=== PATIENT | male | born 1960 | race Caucasian/White ===

== ENCOUNTER 2018-01-31 12:16 | Inpatient (IN) | payer OTHER ==
[~2018-01-31] VITALS: Ht 170.2 cm; Wt 63.5 kg
[~2018-01-31 12:16] MED LIST: AZITHROMYCIN500 M3 PO; CHERATUSSIN AC118 M1 PO; LISINOPRIL20 M1 PO; MEDROL4 M2 PO; METHADONE H5 MG/5 ML PO; METHADONE HCL10 M1 PO; NICOTINE PATCH1 EAC2 TOP; PREDNISONE10 M2 PO; PROAIR HFA8.5 GM INH; SPIRIVA 18 MCG18 MCG INH; SPIRIVA18 MCG INH; TESSALON PERLE100 M1 PO; ZITHROMAX500 M2 PO
--- NOTE | 2018-01-31 12:35 | ED DYSPNEA/ASTHMA COMPLAINT ---
History of Present Illness General Chief Complaint: Dyspnea (COPD, CHF, Other) Stated Complaint: SOB X 2 DAYS Source: patient, old records Exam Limitations: no limitations Vital Signs & Intake/Output Vital Signs & Intake/Output Vital Signs Date Time Temp Pulse Resp B/P B/P Pulse O2 O2 Flow FiO2 Mean Ox Delivery Rate 01/31 1443 98.2 92 20 137/97 93 Nasal 4.0L Cannula 01/31 1250 93 Nasal 4.0L Cannula 01/31 1235 90 Nasal 4.0L Cannula 01/31 1219 99.0 120 20 142/97 82 Room Air Allergies Coded Allergies: diphenhydramine (From BENADRYL) (Intermediate, JITTERY 08/06/17) Antihistamines - Piperazine (UNKNOWN 08/06/17) Reconcile Medications Methadone HCl 5 MG/5 ML SOLUTION 80 MG PO DAILY MAINTENCE (Reported) Triage Note: PT TO ED C/O SOB SINCE TUESDAY. STATES HE IS UNABLE TO TAKE A DEEP BREATH. RA SATS 82%. PT APPEARS PALE AND DIAPHORETIC. C/O PRODUCTIVE COUGH. TAKEN TO ROOM 9 VIA W/C, PLACED ON O2. Triage Nurses Notes Reviewed? yes HPI: Patient presents with increasing shortness of breath and a nonproductive cough. He he has had chills and anorexia but denies any fevers. Patient does use oxygen occasionally at home and states that he has been having to use it more. Patient denies any chest pain or chest tightness. Similar symptoms in the past when his COPD and has acted up. Past History Travel History Traveled to [place] past 21 day No Medical History Any Pertinent Medical History? 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 No Review of Systems Review of Systems Constitutional: Reports: see HPI, chills. EENTM: Reports: no symptoms. Respiratory: Reports: see HPI, cough, short of breath. Cardiovascular: Reports: no symptoms. GI: Reports: no symptoms. Genitourinary: Reports: no symptoms. Musculoskeletal: Reports: no symptoms. Skin: Reports: no symptoms. Neurological/Psychological: Reports: no symptoms. Hematologic/Endocrine: Reports: no symptoms. Immunologic/Allergic: Reports: no symptoms. All Other Systems: Reviewed and Negative Physical Exam Physical Exam General Appearance: well developed/nourished, alert, awake, anxious, moderate distress Head: atraumatic, normal appearance Eyes: Bilateral: PERRL, EOMI. Ears, Nose, Throat: normal pharynx, normal ENT inspection, hearing grossly normal Neck: normal inspection, supple, full range of motion Respiratory: decreased breath sounds, rhonchi, wheezing Cardiovascular: regular rate/rhythm, normal peripheral pulses Gastrointestinal: normal bowel sounds, soft, non-tender, no organomegaly Extremities: normal inspection, normal capillary refill, normal range of motion, no edema Neurologic/Psych: no motor/sensory deficits, awake, alert, oriented x 3 Skin: intact, normal color, warm/dry Lymphatic: no anterior cervical trevon Core Measures ACS in differential dx? No CVA/TIA Diagnosis No Sepsis Present: No Sepsis Focused Exam Completed? No Progress Differential Diagnosis: altitude sickness, COPD, pulmonary embolism, pneumonia, pneumothorax Plan of Care: Orders Procedure Date/time Status Heart Healthy Diet 01/31 D Active Patient Data 01/31 1456 Active ED Holding Orders 01/31 1454 Active Admit to inpatient 01/31 1454 Active Vital Signs 01/31 1454 Active Code Status 01/31 1454 Active Intake & Output 01/31 1304 Active AEROSOL (GEN) 01/31 1255 Complete Telemetry/Vehicle Upholsterer 01/31 1237 Active TROPONIN LEVEL 01/31 1237 Complete COMPREHENSIVE METABOLIC PANEL 01/31 1237 Complete CBC WITHOUT DIFFERENTIAL 01/31 1237 Complete EKG 01/31 1237 Active Laboratory Tests 01/31/18 1300: Anion Gap 6, Estimated GFR > 60, BUN/Creatinine Ratio 42.0 H, Glucose 123 H, Calcium 8.3 L, Total Bilirubin 0.5, AST 72 H, ALT 50, Alkaline Phosphatase 114 , Troponin I < 0.01, Total Protein 5.4 L, Albumin 2.7 L, Globulin 2.7, Albumin /Globulin Ratio 1.0 L, CBC w Diff NO MAN DIFF REQ, RBC 4.12 L, MCV 97.9 H, MCH 32.9 H, MCHC 33.6, RDW 15.0 H, MPV 7.9, Gran % 84.3 H, Lymphocytes % 6.7 L, Monocytes % 8.4, Eosinophils % 0.3, Basophils % 0.3, Absolute Granulocytes 12.7 H, Absolute Lymphocytes 1.0 L, Absolute Monocytes 1.3 H, Absolute Eosinophils 0.1, Absolute Basophils 0 Diagnostic Imaging: Viewed by Me: Radiology Read. Discussed w/RAD: Radiology Read. CXR Impression: PATIENT: ROBERT BACK PRESENT AGE: 57 PATIENT ACCOUNT NO: [id number] : 62 LOCATION: [facility] ORDERING PHYSICIAN: Marcelo Powell MD SERVICE DATE: 01/31/18 EXAM TYPE: RAD - XRY- PORTABLE CHEST XRAY EXAMINATION: CHEST 1 VIEW CLINICAL INFORMATION: Shortness of breath. COMPARISON: 11/21/2017. TECHNIQUE: An AP view of the chest is provided. FINDINGS: The cardiac silhouette is not enlarged. The mediastinal and hilar contours are unremarkable. There are neither pleural effusions nor pneumothoraces. There is multifocal opacification, most prominently within the lateral inferior right upper lobe there is also streaky lateral right lung base opacification and faint airspace disease at the left lung base. The lungs are hyperinflated. The osseous structures are unremarkable. IMPRESSION: Multifocal airspace disease. This could correspond to pneumonia in the appropriate clinical setting, but is nonspecific. Recommendation is for a followup chest series to be obtained following treatment and/or resolution of symptoms to assure resolution of this appearance. DICTATED BY: Darinel Flores MD DATE/TIME DICTATED:01/31/181406 LEAN SENSEI:BLANCA DATE/TIME TRANSCRIBED:01/31/181406 CONFIDENTIAL, DO NOT COPY WITHOUT APPROPRIATE AUTHORIZATION. <Electronically signed in Other Vendor System> SIGNED BY: Darinel Flores MD 01/31/18 1413 Initial ED EKG: NSR, nonspecific ST T wave chg Prior EKG: unchanged Departure Departure Disposition: STILL A PATIENT Condition: Stable Clinical Impression Primary Impression: Pneumonia Referrals: Bessie GALE,Imani Mcclain (PCP/Family) Departure Forms: Customer Survey General Discharge Information Admission Note Spoke With: Mason Dia MD Documentation of Exam: Documentation of any treatments & extenuating circumstances including Concerns Regarding Discharge (functional status, medication knowledge or non-compliance, living conditions, etc.) that warrant an admission rather than observation: [IV antibiotics, IV steroids, nebulizers, pulmonary consultation, respiratory treatment.] Critical Care Note Critical Care Note Critical Care Time: non-applicable
[2018-01-31] MEDS ORDERED: METHADONE H5 MG/5 M2 PO (12:41)
[2018-01-31 13:12] LABS: ABSOLUTE BASOPHIL COUNT 0 /CUMM (0.0-0.2); ABSOLUTE EOSINOPHIL COUNT 0.1 /CUMM (0.0-0.7); ABSOLUTE GRANULOCYTE CT 12.7 /CUMM (1.4-6.5); ABSOLUTE MONOCYTE COUNT 1.3 /CUMM (0.10-0.60); BASOPHIL % 0.3 % (0.0-2.0); EOSINOPHIL % 0.3 % (0-5); HEMATOCRIT 40.3 % (42-52); MEAN CORPUSCULAR HGB 32.9 PG (27.0-31.0); MEAN CORPUSCULAR HGB CONC 33.6 G/DL (33.0-37.0); MEAN CORPUSCULAR VOLUME 97.9 FL (80.0-94.0); MEAN PLATELET VOLUME 7.9 FL (7.4-10.4); RED BLOOD CELL CT 4.12 /CUMM (4.70-6.10); WHITE BLOOD CELL COUNT 15.1 /CUMM (4.8-10.8)
[2018-01-31 13:29] LABS: GRANULOCYTE % 84.3 % (42.2-75.2); PLATELET COUNT 368 /CUMM (130-400)
--- NOTE | 2018-01-31 14:13 | RADIOLOGY REPORT ---
EXAMINATION: CHEST 1 VIEW CLINICAL INFORMATION: Shortness of breath. COMPARISON: 11/21/2017. TECHNIQUE: An AP view of the chest is provided. FINDINGS: The cardiac silhouette is not enlarged. The mediastinal and hilar contours are unremarkable. There are neither pleural effusions nor pneumothoraces. There is multifocal opacification, most prominently within the lateral inferior right upper lobe there is also streaky lateral right lung base opacification and faint airspace disease at the left lung base. The lungs are hyperinflated. The osseous structures are unremarkable. IMPRESSION: Multifocal airspace disease. This could correspond to pneumonia in the appropriate clinical setting, but is nonspecific. Recommendation is for a followup chest series to be obtained following treatment and/or resolution of symptoms to assure resolution of this appearance.
--- NOTE | 2018-01-31 14:59 | History & Physical ---
Jaime GALE,[facility] 01/31/18 1459: General Information and HPI MD Statement: I have seen and personally examined ROBERT BACK and documented this H&P. The patient is a 57 year old M who presented with a patient stated chief complaint of [shortness of breath]. Source of Information: patient Exam Limitations: no limitations History of Present Illness: The patient is 57-year-old gentleman with past medical history of COPD on home oxygen hypertension on lisinopril, 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 The patient presented to [facility] ED on 01/31 with complain of shortness of breath ongoing for past 2 days. Patient reports using home oxygen intermittently at baseline. Since past 2 days he has been using oxygen constantly. He also reports productive cough with brown to green color of sputum. He did not use any nebulization at home. He denies any fevers or any chills. He reports sharp pain underneath his ribs exacerbated by deep inspiration. He denies any sick contacts or any recent travel. He was treated for COPD exacerbation about 8 months ago. He has followed up with Dr. Santacruz once after that. He reports that he quit smoking one month ago, he used to smoke 1 and half a pack a day. Patient initially said that he has stopped consuming alcohol for past 6 months. However later said that he drinks 3-4 beers and 2-3 shots every night. He reports being on methadone. Review of system patient reported increased pressure and difficulty starting urination. 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 Home Who Do You Live With? child Services at Home: None Primary Language: Cypriot Smoking Status: Former Smoker ETOH Use: heavy use Illicit Drug Use: denies illicit drug use Functional Ability ADLs Independent: dressing, eating, toileting, bathing. Ambulation: independent IADLs Independent: shopping, housework, finances, food prep, telephone, transportation , medication admin. Review of Systems Review of Systems Constitutional: Reports: see HPI. Denies: chills, fever. EENTM: Reports: no symptoms. Cardiovascular: Denies: chest pain. Respiratory: Reports: cough, short of breath. GI: Reports: no symptoms. Genitourinary: Reports: see HPI. Exam & Diagnostic Data Last 24 Hrs of Vital Signs/I&O Vital Signs Date Time Temp Pulse Resp B/P B/P Pulse O2 O2 Flow FiO2 Mean Ox Delivery Rate 01/31 1931 Nasal 3.5L Cannula 01/31 1805 98.3 76 14 120/90 92 Nasal 3.0L Cannula 01/31 1710 92 Nasal 3.0L Cannula 01/31 1654 98.5 83 19 135/85 91 Nasal 4.0L Cannula 01/31 1443 98.2 92 20 137/97 93 Nasal 4.0L Cannula 01/31 1250 93 Nasal 4.0L Cannula 01/31 1235 90 Nasal 4.0L Cannula 01/31 1219 99.0 120 20 142/97 82 Room Air Intake & Output 01/31 1600 01/31 0800 01/31 0000 Intake Total 0 Output Total Balance 0 Intake, Oral 0 Patient 135 lb Weight Weight Estimated Measurement Method Physical Exam General Appearance Alert, Oriented X3, Cooperative Skin No Rashes HEENT Atraumatic Cardiovascular Normal S1, Normal S2, No Murmurs Lungs diffuse expiratory wheezes Abdomen Normal Bowel Sounds, Soft, No Tenderness Neurological Normal Speech Extremities No Clubbing, No Cyanosis, No Edema Last 24 Hrs of Labs/[place]: Laboratory Tests 01/31/18 1609: Urinalysis LIGHT H, Urine Color YEL, Urine Clarity CLEAR, Urine pH 6.0, Ur Specific [place] 1.025, Urine Protein 30 H, Urine Ketones NEG, Urine Nitrite NEG, Urine Bilirubin NEG@ICTO, Urine Urobilinogen 4.0 H, Ur Leukocyte Esterase NEG, Ur Microscopic SEDIMENT EXAMINED, Urine RBC 1-3, Urine WBC 1-3 H, Ur Epithelial Cells RARE, Urine Mucus MANY H, Urine Hemoglobin NEG, Urine Glucose NEG 01/31/18 1300: Anion Gap 6, Estimated GFR > 60, BUN/Creatinine Ratio 42.0 H, Glucose 123 H, Calcium 8.3 L, Total Bilirubin 0.5, AST 72 H, ALT 50, Alkaline Phosphatase 114 , Troponin I < 0.01, Total Protein 5.4 L, Albumin 2.7 L, Globulin 2.7, Albumin /Globulin Ratio 1.0 L, CBC w Diff NO MAN DIFF REQ, RBC 4.12 L, MCV 97.9 H, MCH 32.9 H, MCHC 33.6, RDW 15.0 H, MPV 7.9, Gran % 84.3 H, Lymphocytes % 6.7 L, Monocytes % 8.4, Eosinophils % 0.3, Basophils % 0.3, Absolute Granulocytes 12.7 H, Absolute Lymphocytes 1.0 L, Absolute Monocytes 1.3 H, Absolute Eosinophils 0.1, Absolute Basophils 0 Microbiology 01/31 1639 BLOOD: Blood Culture - RECD 01/31 1636 BLOOD: Blood Culture - RECD 01/31 1609 URINE ROUT: Legionella Antigen - COMP 01/31 1609 URINE ROUT: Streptococcus pneumoniae Antigen (M - COMP STREP PNEUMO BACTERIAL AG 01/31 1609 URINE ROUT: Urine Culture - RECD 01/31 1531 LOWER RESP: Respiratory Culture - COLB 01/31 1531 LOWER RESP: Gram Stain - COLB Diagnostic Data CXR Results IMPRESSION: Multifocal airspace disease. This could correspond to pneumonia in the appropriate clinical setting, but is nonspecific. Assessment/Plan Assessment: The patient is 57-year-old gentleman with past medical history of COPD on home oxygen hypertension on lisinopril, 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 The patient presented to [facility] ED on 01/31 with complain of shortness of breath ongoing and increased oxygen requirement for past 2 days. Vitals on presentation Tmax 99.0 tachycardic up to 120s oxygen saturation 82% on room air 92% on 2 L Admission labs were significant for leukocytosis up to 15.1 H/H 13.5/40.3, hyponatremia 132 BUN 21 creatinine 0.5 calcium 8.3 AST 72 Imaging findings dictated above The patient was being admitted to general medicine floor and is being treated and evaluated for following conditions #Community-acquired pneumonia Patient's presentation of shortness of breath and increased sputum production along with leukocytosis and imaging findings of Multifocal airspace disease is consistent with community-acquired pneumonia. -Monitor fever and WBC curve -Blood cultures 2 -Sputum culture -Urine Legionella antigen -Urine strep antigen -IV antibiotics Ceftriaxone and azithromycin -Tylenol if patient spikes fever -Oxygen supplementation to maintain oxygen saturation above 92% #Acute hypoxic respiratory failure secondary to community-acquired pneumonia and COPD exacerbation Patient was saturating 82% on RA on presentation, oxygen saturation was increased up to 90s on 3 L. He has underlying pneumonia and history of COPD which might be contributing to the acute hypoxic respiratory failure -albuterol and ipratropium nebulizer -Consider addition of Symbicort versus Spiriva along with rescue inhaler -Oxygen supplementation to maintain oxygen saturation above 92% -Treatment of pneumonia pneumonia with IV antibiotics -Pulm consult in the morning -IV steroids for now -Mucinex #Rule of UTI Patient reported increased pressure and difficulty starting urination. However denied any frequency urgency or dysuria -Will get UA and urine culture to rule out UTI #Alcohol abuse disorder Patient initially said that he has stopped consuming alcohol for past 6 months. However later said that he drinks 3-4 beers and 2-3 shots every night -We'll start patient on CIWA protocol -Ativan as per CIWA per protocol #Anemia -Check b12 in setting of macrocytosis and alcohol abuse -We'll check folate as well #Opioid abuse disorder? -Patient reports being on methadone 40 mg. -We will confirm the methadone dose in the morning and dose accordingly #Chronic medical conditions hypertension continue lisinopril #Heart healthy diet/DVT prophylaxis with Lovenox/FC As Ranked By This Provider Problem List: 1. Pneumonia 2. COPD exacerbation Core Measures/Misc (05/22) Acute Coronary Syndrome ACS Diagnosis: No Congestive Heart Failure Congestive Heart Failure Diagnosis No Cerebrovascular Accident CVA/TIA Diagnosis: No VTE (View Protocol) VTE Risk Factors Age>40 No Mechanical VTE Prophylaxis d/t N/A MechProphylax Ordered No VTE Pharm Prophylaxis d/t NA PharmProphylax ordered Sepsis (View protocol) Sepsis Present: No If YES complete Sepsis Event Note If YES complete Sepsis Event Note Sissy Rico 01/31/18 1907: General Information and HPI Allergies/Medications Home Med list Albuterol Sulfate (Proair Hfa) 90 MCG HFA.AER.AD 2 PUF INH Q4-6 PRN PRN sob ( Reported) Lisinopril 20 MG TABLET 1 TAB PO DAILY htn (Reported) Methadone HCl 5 MG/5 ML SOLUTION 80 MG PO DAILY MAINTENCE (Reported) Tiotropium Mobile (Spiriva Respimat) 1.25 MCG/ACTUATION MIST.INHAL 1 PUFF INH BID sob (Reported) Core Measures/Misc (05/22) Sepsis (View protocol) If YES complete Sepsis Event Note If YES complete Sepsis Event Note Resident Review Statement Other Findings: Patient is a 57-year-old male with past medical history of hypertension, COPD, anxiety, depression, who came in with a chief complaint of difficulty breathing and productive cough. Patient says that he is on home oxygen intermittently but recently his oxygen requirements went up and since Tuesday he's been having productive cough with brown green phlegm. Patient also reports of subjective fevers but has not checked it at home. He denies any chills. The patient was admitted to hospital in June 2017 with similar complains of difficulty breathing and was treated for COPD exacerbation. Labs and vitals as above CXR: Multifocal airspace disease. This could correspond to pneumonia in the appropriate clinical setting, but is nonspecific. Recommendation is for a followup chest series to be obtained following treatment and/or resolution of symptoms to assure resolution of this appearance. Assessment and plan Will admit the patient on general medicine floor and treat for pneumonia with ceftriaxone and azithromycin. Patient's strep pneumo antigen is positive. Will follow blood cultures urine culture and a straight culture. Patient also reports of drinking alcohol around 4 beers a day, will keep him on several and order ativan prn per CIWA. Patient has bilateral extrarenal wheezes on examination, he got a loading dose of solumedrol and ER with continue solumedrol 40 q8. DVT prophylaxis Lovenox Patient is full code Mason Dia MD 01/31/18 2030: Core Measures/Misc (05/22) Sepsis (View protocol) If YES complete Sepsis Event Note If YES complete Sepsis Event Note Attending MD Review Statement Attending Statement Attending MD Statement: examined this patient, discuss w/resident/PA/STOCK ROOM MANAGER, agreed w/resident/PA/STOCK ROOM MANAGER, reviewed EMR data (avail) Attending Assessment/Plan: 57M PH COPD on 2L NC with 3 days of cough and shortness of breath, green sputu, afebrie, decreased appetite. Wheezing on exam but looks well and not overly short of breath. Afebile though WBC 15. Sputum strep antigen positive, CXR shows multifocal lung disease. Patient is hemodynamically stable. Oxygen requirements up to 3.5L. 1. Streptoccoal bilateral lower lobe pneumonia 2. Acute on chronic hypoxemic respiratory failure 3. COPD Exacerbation Plan - Admit to general medicine - Start Ceftrixone - Sputum culture - Solumedrol - Nebulier treatments - Continue home meds -DVT PPx
[2018-01-31 18:05] VITALS: BP 120/90
[2018-01-31] MEDS ORDERED: LISINOPRIL20 M1 PO (19:53)
[2018-01-31] MEDS ORDERED: PROAIR HFA8.5 GM INH (19:56)
[2018-01-31] MEDS ORDERED: SPIRIVA RESPIMAT4 G1 INH (19:56)
[2018-01-31 21:38] VITALS: BP 126/86
[2018-02-01 06:40] VITALS: BP 110/93
--- NOTE | 2018-02-01 07:48 | PN- Housestaff ---
Jaime GALE,Laura 02/01/18 0748: Subjective Follow-up For: CAP Subjective: seen and examined offers no complains. wants to be discharged reports improvement in symptoms Review of Systems Constitutional: Reports: see HPI. Objective Last 24 Hrs of Vital Signs/I&O Vital Signs Date Time Temp Pulse Resp B/P B/P Pulse O2 O2 Flow FiO2 Mean Ox Delivery Rate 02/01 1342 97.8 90 20 133/89 91 Nasal 3.5L Cannula 02/01 1335 110/93 02/01 0909 91 Nasal 3.5L Cannula 02/01 0800 Nasal 3.0L Cannula 02/01 0640 97.6 81 20 110/93 93 Nasal 3.0L Cannula 02/01 0000 93 Nasal 3.0L Cannula 01/31 2138 98.1 80 16 126/86 89 Nasal 4.0L Cannula 01/31 1931 Nasal 3.5L Cannula 01/31 1805 98.3 76 14 120/90 92 Nasal 3.0L Cannula 01/31 1710 92 Nasal 3.0L Cannula 01/31 1654 98.5 83 19 135/85 91 Nasal 4.0L Cannula Intake & Output 02/01 1600 02/01 0800 02/01 0000 Intake Total 1700 480 240 Output Total Balance 1700 480 240 Intake, IV 300 Intake, Oral 1400 480 240 Number 0 Bowel Movements Patient 140 lb Weight Weight Reported by Patient Measurement Method Physical Exam General Appearance: Alert, Oriented X3, Cooperative Cardiovascular: Normal S1, Normal S2, No Murmurs Lungs: wheezes Abdomen: Normal Bowel Sounds, Soft Neurological: Normal Speech Current Medications: Current Medications Sig/Bonilla Start time Last Medication Dose Route Stop Time Status Admin Albuterol Sulfate 3 ML EVERY 4 HRS/AWAKE 02/01 2000 AC 02/01 INH 1158 Albuterol Sulfate 2 PUF Q4-6 PRN PRN 02/01 2000 AC INH Azithromycin 500 MG DAILY 02/01 900 DC 02/01 Sodium Chloride 250 ML IV 0811 Ceftriaxone Sodium 1,000 MG DAILY 02/01 900 AC 02/01 IV 0811 Enoxaparin Sodium 40 MG DAILY 02/01 900 AC 02/01 SC 0810 Ipratropium [place] 2.5 ML EVERY 4 HRS/AWAKE 02/01 2000 AC 02/01 INH 1158 Lisinopril 20 MG DAILY 02/01 900 AC 02/01 PO 1335 Lorazepam 0 Q1P PRN 02/01 2000 AC IV Methadone HCl 80 MG DAILY 02/01 0900 AC 02/01 PO 0811 Methylprednisolone 40 MG BID 02/01 2100 AC IV Methylprednisolone 40 MG Q8 01/31 2200 DC 02/01 IV 0514 Non-Formulary 0 SEE ADMIN CRITERIA 02/01 2000 DC Medication ANY Patient Medication 1 ED ONE ONE 02/01 1130 DC Teaching ED 02/01 1131 Tiotropium [place] 1 PUF DAILY 01/31 195 AC 02/01 INH 0811 Last 24 Hrs of Lab/[place] Results Last 24 Hrs of Labs/Mics: Laboratory Tests 02/01/18 0715: Anion Gap 8, Estimated GFR > 60, BUN/Creatinine Ratio 40.0 H, CBC w Diff NO MAN DIFF REQ, RBC 4.05 L, MCV 98.6 H, MCH 32.8 H, MCHC 33.3, RDW 14.8 H, MPV 8.6 , Gran % 86.2 H, Lymphocytes % 8.1 L, Monocytes % 5.4, Eosinophils % 0.1, Basophils % 0.2, Absolute Granulocytes 7.5 H, Absolute Lymphocytes 0.7 L, Absolute Monocytes 0.5, Absolute Eosinophils 0, Absolute Basophils 0 Microbiology 01/31 1639 BLOOD: Blood Culture - RES 01/31 1636 BLOOD: Blood Culture - RES Assessment/Plan Assessment: The patient is 57-year-old gentleman with past medical history of COPD on home oxygen hypertension on lisinopril, 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 The patient presented to [place] ED on 01/31 with complain of shortness of breath ongoing and increased oxygen requirement for past 2 days. Vitals on presentation Tmax 99.0 tachycardic up to 120s oxygen saturation 82% on room air 92% on 2 L Admission labs were significant for leukocytosis up to 15.1 H/H 13.5/40.3, hyponatremia 132 BUN 21 creatinine 0.5 calcium 8.3 AST 72 Imaging findings dictated above The patient was being admitted to general medicine floor and is being treated and evaluated for following conditions #Community-acquired pneumonia Patient's presentation of shortness of breath and increased sputum production along with leukocytosis and imaging findings of Multifocal airspace disease is consistent with community-acquired pneumonia. -Monitor fever and WBC curve afebrile without white count -Blood cultures 2 pending -Sputum culture -Urine Legionella antigen negative -Urine strep antigen positive -IV Ceftriaxone -Tylenol if patient spikes fever -Oxygen supplementation to maintain oxygen saturation above 92% #Acute hypoxic respiratory failure secondary to community-acquired pneumonia and COPD exacerbation Patient was saturating 82% on RA on presentation, oxygen saturation was increased up to 90s on 3 L. He has underlying pneumonia and history of COPD which might be contributing to the acute hypoxic respiratory failure -albuterol and ipratropium nebulizer -Consider addition of Symbicort versus Spiriva along with rescue inhaler -Oxygen supplementation to maintain oxygen saturation above 92% -Treatment of pneumonia with IV antibiotics -IV steroids twice a day today -Mucinex #Anemia Patient H&H is 80/40 along with macrocytosis probably secondary to alcohol abuse will check B12 and folate #Alcohol abuse disorder Patient initially said that he has stopped consuming alcohol for past 6 months. However later said that he drinks 3-4 beers and 2-3 shots every night -We'll start patient on CIWA protocol -Ativan as per CIWA per protocol -CIWA 0,0,0,0,0 #Opioid abuse disorder? -Patient reports being on methadone 40 mg. -We will confirm the methadone dose #Rule of UTI Patient reported increased pressure and difficulty starting urination. However denied any frequency urgency or dysuria hematuria is clear urine culture does not show any growth so far probably related to prostate. Patient in follow-up with PCP outpatient #Chronic medical conditions hypertension continue lisinopril #Heart healthy diet/DVT prophylaxis with Lovenox/FC Problem List: 1. COPD exacerbation 2. Pneumonia Pain Ratin Pain Location: ribs Pain Goal: Pain 4 or less Pain Plan: prn Tomorrow's Labs & Rationales: cbc bep Diane GALE,Rebeca 02/01/18 1434: Attending MD Review Statement Attending Statement Attending MD Statement: examined this patient, discuss w/resident/PA/APPRAISER TIMBER, agreed w/resident/PA/APPRAISER TIMBER, reviewed EMR data (avail), discussed with nursing, discussed with case mgmt, amended to note Attending Assessment/Plan: Patient seen and examined. Resting comfortably and not in acute distress. Reports feeling better compared to presentation. Eager to be discharged home. Currently afebrile. Maintaining saturation on 3-1/2 L of oxygen. Will continue current course of bronchodilator therapy. On Examination he has adequate entry bilaterally with mild diffuse rhonchi. He is not in any respiratory distress. Wean down his steroid therapy to 40 mEq twice daily. Continue current antibiotic regimen. If he continues to improve clinically we will transition him to an oral regimen.
[2018-02-01 08:21] LABS: ABSOLUTE BASOPHIL COUNT 0 /CUMM (0.0-0.2); ABSOLUTE EOSINOPHIL COUNT 0 /CUMM (0.0-0.7); ABSOLUTE GRANULOCYTE CT 7.5 /CUMM (1.4-6.5); ABSOLUTE LYMPH COUNT 0.7 /CUMM (1.2-3.4); ABSOLUTE MONOCYTE COUNT 0.5 /CUMM (0.10-0.60); BASOPHIL % 0.2 % (0.0-2.0); EOSINOPHIL % 0.1 % (0-5); HEMATOCRIT 39.9 % (42-52); MEAN CORPUSCULAR HGB 32.8 PG (27.0-31.0); MEAN CORPUSCULAR HGB CONC 33.3 G/DL (33.0-37.0); MEAN CORPUSCULAR VOLUME 98.6 FL (80.0-94.0); MEAN PLATELET VOLUME 8.6 FL (7.4-10.4); RBC DISTRIBUTION WIDTH 14.8 % (11.5-14.5); RED BLOOD CELL CT 4.05 /CUMM (4.70-6.10); WHITE BLOOD CELL COUNT 8.7 /CUMM (4.8-10.8)
[2018-02-01 09:00] LABS: GRANULOCYTE % 86.2 % (42.2-75.2); PLATELET COUNT 326 /CUMM (130-400)
[2018-02-01 13:42] VITALS: BP 133/89
[2018-02-01 20:40] VITALS: BP 115/80
[2018-02-01 22:00] VITALS: BP 115/80
[2018-02-02 02:00] VITALS: BP 114/78
[2018-02-02 06:00] VITALS: BP 120/80
--- NOTE | 2018-02-02 07:32 | Patient Discharge Instructions ---
Discharge Instructions General Discharge Information You were seen/treated for: COPD exacerbation Community-acquired pneumonia Special Instructions: Please follow-up with your primary care doctor after discharge Please follow-up with her lung doctor after discharge Please take steroid course and antibiotic course as directed. Your liver function tests were elevated, please follow up with car seat maker after discharge Diet Continue normal diet: Yes Activity Activity Self Limited: Yes Acute Coronary Syndrome Inclusion Criteria At DC or during hospital stay patient has or had the following: ACS DIAGNOSIS No Discharge Core Measures Meds if any: Prescribed or Continued at Discharge Meds if any: NOT Prescribed or Continued at Discharge Congestive Heart Failure Inclusion Criteria At DC or during hospital stay patient has or had the following: CHF DIAGNOSIS No Discharge Core Measures Meds if any: Prescribed or Continued at Discharge Meds if any: NOT Prescribed or Continued at Discharge Cerebrovascular accident Inclusion Criteria At DC or during hospital stay patient has or had the following: CVA/TIA Diagnosis No Discharge Core Measures Meds if any: Prescribed or Continued at Discharge Meds if any: NOT Prescribed or Continued at Discharge Venous thromboembolism Inclusion Criteria VTE Diagnosis No VTE Type NONE VTE Confirmed by (Test) NONE Discharge Core Measures - Per Current guidelines, there needs to be overlap - treatment for the first 5 days of Warfarin therapy. - If discharged on Warfarin prior to 5 days of - overlap therapy, the patient will need to be - assessed for post discharge needs including - *Post discharge parental anticoagulation - *Warfarin and/or parental anticoagulation education - *Follow up date to check INR post discharge At least 5 days overlap therapy as Inpatient No Meds if any: Prescribed or Continued at Discharge Note: Overlap Therapy is Warfarin and Anticoagulant Meds if any: NOT Prescribed or Continued at Discharge
[2018-02-02] MEDS ORDERED: AUGMENTIN 875-1 EACH PO (07:33)
[2018-02-02] MEDS ORDERED: PREDNISONE10 M2 PO (07:36)
[2018-02-02 08:41] LABS: ABSOLUTE BASOPHIL COUNT 0 /CUMM (0.0-0.2); ABSOLUTE EOSINOPHIL COUNT 0 /CUMM (0.0-0.7); ABSOLUTE GRANULOCYTE CT 11.1 /CUMM (1.4-6.5); ABSOLUTE MONOCYTE COUNT 0.5 /CUMM (0.10-0.60); BASOPHIL % 0 % (0.0-2.0); EOSINOPHIL % 0 % (0-5); HEMATOCRIT 37.8 % (42-52); MEAN CORPUSCULAR HGB 32.4 PG (27.0-31.0); MEAN CORPUSCULAR HGB CONC 32.9 G/DL (33.0-37.0); MEAN CORPUSCULAR VOLUME 98.4 FL (80.0-94.0); MEAN PLATELET VOLUME 8.1 FL (7.4-10.4); RBC DISTRIBUTION WIDTH 15.1 % (11.5-14.5); RED BLOOD CELL CT 3.84 /CUMM (4.70-6.10); WHITE BLOOD CELL COUNT 12.6 /CUMM (4.8-10.8)
--- NOTE | 2018-02-02 09:17 | PN- Housestaff ---
Jaime GALE,Laura 02/02/18916: Subjective Follow-up For: Community-acquired pneumonia COPD exacerbation transaminitis and elevated alkaline phosphatase Subjective: Patient seen and examined. Resting comfortably. The patient's improvement in symptoms stated that he is on 3 L at baseline. The patient labs show elevated LFTs does not report any abdominal or right upper quadrant tenderness. Review of Systems Constitutional: Reports: see HPI. Objective Last 24 Hrs of Vital Signs/I&O Vital Signs Date Time Temp Pulse Resp B/P B/P Pulse O2 O2 Flow FiO2 Mean Ox Delivery Rate 02/02 1402 97.7 76 18 138/96 93 Nasal 3.5L Cannula 02/02 0837 90 Nasal 3.5L Cannula 02/02 0800 Nasal 3.5L Cannula 02/02 0800 120/80 02/02 0600 98.0 90 18 120/80 02/02 0200 97.8 87 18 114/78 02/02 0000 92 Nasal 3.5L Cannula 02/01 2200 97.7 90 18 115/80 02/01 2040 97.8 90 18 115/80 92 02/01 1634 92 Nasal 3.5L Cannula 02/01 1600 Nasal 2.0L Cannula Intake & Output 02/02 1600 02/02 0800 02/02 0000 Intake Total 1200 250 130 Output Total Balance 1200 250 130 Intake, IV 0 10 10 Intake, Oral 1200 240 120 Number 0 Bowel Movements Physical Exam General Appearance: Alert, Oriented X3, Cooperative Cardiovascular: Normal S1, Normal S2 Lungs: wheezes improving Abdomen: Normal Bowel Sounds, Soft Neurological: Normal Speech Current Medications: Current Medications Sig/Bonilla Start time Last Medication Dose Route Stop Time Status Admin Albuterol Sulfate 3 ML EVERY 4 HRS/AWAKE 02/01 2000 AC 02/02 INH 1124 Albuterol Sulfate 2 PUF Q4-6 PRN PRN 02/01 2000 AC INH Azithromycin 500 MG DAILY 02/01 09 DC 02/01 Sodium Chloride 250 ML IV 0811 Ceftriaxone Sodium 1,000 MG DAILY 02/01 900 AC 02/02 IV 0759 Enoxaparin Sodium 40 MG DAILY 02/01 900 AC 02/02 SC 0800 Guaifenesin 600 MG Q12 02/02 900 AC 02/02 PO 1228 Guaifenesin 10 ML Q6P PRN 02/02 830 AC PO Ipratropium [place] 2.5 ML EVERY 4 HRS/AWAKE 02/01 2000 AC 02/02 INH 1124 Lisinopril 20 MG DAILY 02/01 0900 AC 02/02 PO 0800 Lorazepam 0 Q1P PRN 02/01 2000 AC IV Methadone HCl 80 MG DAILY 02/01 0900 AC 02/02 PO 0759 Methylprednisolone 40 MG BID 02/01 2100 DC 02/01 IV 1728 Prednisone 40 MG ONCE ONE 02/02 0815 DC 02/02 PO 02/02 0816 1227 Tiotropium [place] 1 PUF DAILY 02/01 1956 AC 02/02 INH 0800 Last 24 Hrs of Lab/[place] Results Last 24 Hrs of Labs/Mics: Laboratory Tests 02/02/18 0655: Anion Gap 6, Estimated GFR > 60, BUN/Creatinine Ratio 34.0 H, Total Bilirubin 0.2, Direct Bilirubin 0.2, AST 236 H, ALT 187 H, Alkaline Phosphatase 103, Total Protein 5.1 L, Albumin 2.5 L, CBC w Diff NO MAN DIFF REQ, RBC 3.84 L, MCV 98.4 H, MCH 32.4 H, MCHC 32.9 L, RDW 15.1 H, MPV 8.1, Gran % 88.2 H, Lymphocytes % 7.7 L, Monocytes % 4.1, Eosinophils % 0, Basophils % 0, Absolute Granulocytes 11.1 H, Absolute Lymphocytes 1.0 L, Absolute Monocytes 0.5, Absolute Eosinophils 0, Absolute Basophils 0, Hepatitis A IgM Ab NONREACTIVE, Hep Bs Antigen NONREACTIVE, Hep B Core IgM Ab Conf NONREACTIVE, Hepatitis C Antibody NONREACTIVE Assessment/Plan Assessment: The patient is 57-year-old gentleman with past medical history of COPD on home oxygen hypertension on lisinopril, 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 The patient presented to [place] ED on 01/31 with complain of shortness of breath ongoing and increased oxygen requirement for past 2 days. #Strep Pneumo pneumonia Patient's presentation of shortness of breath and increased sputum production along with leukocytosis and imaging findings of Multifocal airspace disease is consistent with community-acquired pneumonia.-Urine strep antigen positive -Blood cultures x2 No growth -Sputum culture ordered again -Switch to oral abx -Tylenol if patient spikes fever -Oxygen supplementation to maintain oxygen saturation above 92% #Acute hypoxic respiratory failure secondary to community-acquired pneumonia and COPD exacerbation Patient was saturating 82% on RA on presentation, oxygen saturation was increased up to 90s on 3 L. He has underlying pneumonia and history of COPD which might be contributing to the acute hypoxic respiratory failure -albuterol and ipratropium nebulizer -Consider addition of Symbicort , Spiriva along with rescue inhaler -Oxygen supplementation to maintain oxygen saturation above 92% -Treatment of pneumonia with oral antibiotics -Prednisone taper -Mucinex # Transaminitis AST 236, ALT 187 -will check Hep panel -will check RUQ USG #Anemia Patient H&H is 80/40 along with macrocytosis probably secondary to alcohol abuse B12 and folate WNL #Alcohol abuse disorder Patient initially said that he has stopped consuming alcohol for past 6 months. However later said that he drinks 3-4 beers and 2-3 shots every night -patient on CIWA protocol -Ativan as per CIWA per protocol -CIWA 0,0,0,0,0 #Opioid abuse disorder? -Patient reports being on methadone 40 mg. -We will confirm the methadone dose #Rule of UTI Patient reported increased pressure and difficulty starting urination. However denied any frequency urgency or dysuria hematuria is clear urine culture does not show any growth so far probably related to prostate. Patient in follow-up with PCP outpatient #Chronic medical conditions hypertension continue lisinopril #NPO for USG/DVT prophylaxis with Lovenox/FC Problem List: 1. COPD exacerbation 2. Pneumonia Pain Ratin Pain Location: n/a Pain Goal: Pain 4 or less Pain Plan: prn Tomorrow's Labs & Rationales: lfts Rebeca Contreras MD 02/02/18 1412: Attending MD Review Statement Attending Statement Attending MD Statement: examined this patient, discuss w/resident/PA/DEPUTY EDITOR IN CHIEF, agreed w/resident/PA/DEPUTY EDITOR IN CHIEF, reviewed EMR data (avail), discussed with nursing, discussed with case mgmt, amended to note Attending Assessment/Plan: Patient seen and examined. No issues overnight reported by nursing staff. Remains afebrile and hemodynamically stable. Resting comfortably and not in any acute distress. Reports feeling better today. He reports that he is on 3 L of oxygen at baseline. Is currently requiring 3.5 L of oxygen. On examination he has adequate entry bilaterally with mild expiratory rhonchi. He is eager to be discharged home today. From a respiratory standpoint he has improved. Laboratory data shows his LFTs to be trending up today. They were mildly elevated and possible muscle today. He is not on any hepatotoxic medications although Rocephin has been reported to cause transaminitis. The blood pressure is stable. He denies history of viral hepatitis. He does admit to significant alcohol use or reports that he has improved in recent time. Recommendations: -Transition to oral antibiotic therapy with amoxicillin. Complete 7 days therapy for his Streptococcus pneumonia. -Continue bronchodilator therapy. Begin prednisone taper. -Patient symptoms place him at GOLD stage D. Upon discharge patient should be on Spiriva and Symbicort in addition to his rescue inhalers. -His transaminitis may likely be due to his chronic alcohol use. Check viral hepatitis panel. Check right upper quadrant sonogram. If his LFTs are not trending upward significantly tomorrow and no acute pathology is noted on sonogram he may be discharged home tomorrow with outpatient gastroenterology follow-up.
[2018-02-02 09:43] LABS: PLATELET COUNT 368 /CUMM (130-400)
[2018-02-02 09:44] LABS: GRANULOCYTE % 88.2 % (42.2-75.2)
[2018-02-02 14:02] VITALS: BP 138/96
--- NOTE | 2018-02-02 19:14 | ULTRASOUND REPORT ---
EXAMINATION: ABDOMINAL ULTRASOUND LIMITED CLINICAL INFORMATION: Elevated LFTs. COMPARISON: August 2017. TECHNIQUE: Real-time imaging of the right upper quadrant abdominal viscera. FINDINGS: PANCREAS: The visualized pancreatic head and body are normal in appearance. The remainder of the pancreas is obscured from visualization by the overlying bowel gas. LIVER: The liver is of normal size and echogenicity without focal lesions nor intrahepatic biliary ductal dilation. GALLBLADDER: There is echogenic bile within the gallbladder lumen. There are no calculi. There is no gallbladder wall thickening or pericholecystic fluid. COMMON BILE DUCT: The common duct is prominent measuring 12 mm. There is no demonstrable choledocholithiasis. RIGHT KIDNEY: Normal. No hydronephrosis. No renal calculi or focal parenchymal lesions. The kidney measures 11.1 cm in maximum dimension. FREE FLUID: None. IMPRESSION: Echogenic bile without cholelithiasis or cholecystitis. Stable prominent extrahepatic common duct. Consider correlation with abdominal MRI with MRCP sequence for further characterization of the biliary system.
[2018-02-02 22:22] VITALS: BP 140/90
[2018-02-03] VITALS (10 sets, daily range): BP systolic 118–167; BP diastolic 68–98
[2018-02-03] MEDS ORDERED: GUAIFENESIN ER600 MG PO (07:26)
[2018-02-03] MEDS ORDERED: SYMBICORT 80-10.2 GM INH (07:26)
[2018-02-03] MEDS ORDERED: PREDNISONE10 M2 PO ×2 (07:26→11:04)
[2018-02-03] MEDS ORDERED: AMOXICILLIN500 M2 PO ×3 (07:26→16:13)
--- NOTE | 2018-02-03 07:33 | PN- Housestaff ---
Jaime GALE,Laura 02/03/18 0732: Subjective Follow-up For: copd exacerbation Subjective: seen and examined reports improvement in respiratory symptoms. Scheduled for MRCP today Review of Systems Constitutional: Reports: see HPI. Objective Last 24 Hrs of Vital Signs/I&O Vital Signs Date Time Temp Pulse Resp B/P B/P Pulse O2 O2 Flow FiO2 Mean Ox Delivery Rate 02/03 1605 94 Nasal 3.5L Cannula 02/03 1442 98.9 98 18 162/96 90 Nasal 3.5L Cannula 02/03 1200 18.0 60 98 160/90 02/03 1000 98.0 58 18 167/95 02/03 0851 92 Nasal 3.5L Cannula 02/03 0810 58 167/95 02/03 0800 98.0 58 18 167/95 02/03 0800 90 Nasal 3.0L Cannula 02/03 0614 98.0 58 18 167/95 90 06/ 0000 94 Nasal 3.5L Cannula 02/02 2222 98.0 86 20 140/90 88 Nasal 3.5L Cannula Intake & Output 02/03 1600 02/03 0800 02/03 0000 Intake Total 620 120 240 Output Total Balance 620 120 240 Intake, Oral 620 120 240 Number 1 Bowel Movements Physical Exam General Appearance: Alert, Oriented X3 Cardiovascular: Normal S1, Normal S2 Lungs: Clear to Auscultation Abdomen: Normal Bowel Sounds, Soft, No Tenderness Neurological: Normal Speech Current Medications: Current Medications Sig/Bon[place] Start time Last Medication Dose Route Stop Time Status Admin Albuterol Sulfate 3 ML EVERY 4 HRS/AWAKE 02/01 2000 AC 02/03 INH 1211 Albuterol Sulfate 2 PUF Q4-6 PRN PRN 02/01 2000 AC INH Amoxicillin 500 MG TID 02/03 900 AC 02/03 PO 1445 Budesonide/ 2 PUF BID 02/02 2100 AC 02/03 Formoterol Fumarate INH 08 Enoxaparin Sodium 40 MG DAILY 02/01 900 AC 02/03 SC 0812 Guaifenesin 600 MG Q12 02/02 900 AC 02/03 PO 0809 Guaifenesin 10 ML Q6P PRN 02/02 0830 AC PO Ipratropium [place] 2.5 ML EVERY 4 HRS/AWAKE 02/01 2000 AC 02/03 INH 1211 Lisinopril 20 MG DAILY 02/01 900 AC 02/03 PO 0810 Lorazepam 0 Q1P PRN 02/01 2000 AC IV Methadone HCl 80 MG DAILY 02/01 09 AC 02/03 PO 0807 Patient Medication 1 ED ONE ONE 02/03 1545 [place] 02/03 [facility] 02/03 1546 1550 Prednisone 20 MG DAILY 02/06 09 AC PO 02/07 09 Prednisone 40 MG DAILY 02/04 09 DC PO Prednisone 30 MG DAILY 02/04 900 AC PO 02/05 09 Prednisone 40 MG ONCE ONE 02/03 0945 DC 02/03 PO 02/03 0946 1030 Tiotropium [place] 1 PUF DAILY 02/01 1956 AC 02/03 INH 0810 Last 24 Hrs of Lab/[place] Results Last 24 Hrs of Labs/Mics: Laboratory Tests 02/03/18 0800: Total Bilirubin 0.4, Direct Bilirubin 0.3, AST 161 H, ALT 216 H, Alkaline Phosphatase 104, Total Protein 5.3 L, Albumin 2.7 L Assessment/Plan Assessment: The patient is 57-year-old gentleman with past medical history of COPD on home oxygen hypertension on lisinopril, 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 The patient presented to [place] ED on 01/31 with complain of shortness of breath ongoing and increased oxygen requirement for past 2 days. #Strep Pneumo pneumonia Patient's presentation of shortness of breath and increased sputum production along with leukocytosis and imaging findings of Multifocal airspace disease is consistent with community-acquired pneumonia.-Urine strep antigen positive -Blood cultures x2 No growth -Sputum culture ordered again -Amoxicillin to complete a seven-day course -Tylenol if patient spikes fever -Oxygen supplementation to maintain oxygen saturation above 92% #Acute hypoxic respiratory failure secondary to community-acquired pneumonia and COPD exacerbation Patient was saturating 82% on RA on presentation, oxygen saturation was increased up to 90s on 3 L. He has underlying pneumonia and history of COPD which might be contributing to the acute hypoxic respiratory failure -albuterol and ipratropium nebulizer -Consider addition of Symbicort , Spiriva along with rescue inhaler -Oxygen supplementation to maintain oxygen saturation above 92% -Treatment of pneumonia with oral antibiotics -Prednisone taper -Mucinex # Transaminitis Improving right upper quadrant ultrasound showed dilation of intrahepatic ducts. Hepatitis panel is negative -MRCP planned for today #Anemia Patient H&H is 80/40 along with macrocytosis probably secondary to alcohol abuse B 12 and folate WNL #Alcohol abuse disorder Patient initially said that he has stopped consuming alcohol for past 6 months. However later said that he drinks 3-4 beers and 2-3 shots every night -patient on CIWA protocol -Ativan as per CIWA per protocol -CIWA 0,0,0,0,0 #Opioid abuse disorder -Patient reports being on methadone 80 mg. The dose has been confirmed from the formation and they have been informed that he has been admitted to [facility] #Rule of UTI Patient reported increased pressure and difficulty starting urination. However denied any frequency urgency or dysuria hematuria is clear urine culture does not show any growth so far probably related to prostate. Patient in follow-up with PCP outpatient #Chronic medical conditions hypertension continue lisinopril #NPO for USG/DVT prophylaxis with Lovenox/F Problem List: 1. Respiratory distress 2. COPD exacerbation Pain Ratin Pain Location: n/a Pain Goal: Pain 4 or less Pain Plan: prn Tomorrow's Labs & Rationales: lfts Rebeca Contreras MD 02/03/18 1346: Attending MD Review Statement Attending Statement Attending MD Statement: examined this patient, discuss w/resident/PA/ASSOCIATE AUTOMATION ENGINEER, agreed w/resident/PA/ASSOCIATE AUTOMATION ENGINEER, reviewed EMR data (avail), discussed with nursing, discussed with case mgmt, amended to note Attending Assessment/Plan: Patient seen and examined. No issues overnight reported by nursing staff. Remains afebrile and hemodynamically stable. Resting comfortably and not in any acute distress. Complains of shortness of breath with modest exertion but is able to tolerate. Denies chest pain. Denies significant productive cough. Maintaining saturation on 3.5 L of oxygen. On examination he has adequate entry bilaterally with mild wheezing. LFTs were found to be elevated yesterday. Although ratio is consistent with alcoholic hepatitis numbers did trend higher compared to presentation. Right upper quadrant sonogram done yesterday showed no evidence of cholelithiasis or choledocholithiasis however common bile duct did not appear dilated. MRCP was recommended has been ordered for today. LFTs are still elevated today. Recommendations: Continue bronchodilator therapy. Taper down steroids. Continue amoxicillin for his Streptococcus pneumonia. Patient should continue on Spiriva upon discharge. Add Symbicort to his discharge regimen. Patient to continue on his methadone upon discharge. No changes in his methadone dose upon discharge. Follow-up results of MRCP today. Follow-up recommendations of the gastroenterology service.
[2018-02-03] MEDS ORDERED: METHADONE HCL10 M1 PO ×2 (13:29→14:32)
--- NOTE | 2018-02-03 19:14 | MRI REPORT ---
EXAMINATION: MR ABDOMEN WITHOUT CONTRAST CLINICAL INFORMATION: Elevated LFTs COMPARISON: Ultrasound previous day TECHNIQUE: MR abdomen without contrast was obtained using routine sequences. MRCP FINDINGS: Mild motion dictation limits evaluation. The CBD is once again prominent measuring approximately 11 mm on MRI. No definitive findings of choledocholithiasis. Pancreatic duct normal without evidence of pancreatic divisum. Gallbladder again noted without stones or acute inflammatory changes. Small amount of layering sludge within the gallbladder lumen. Relative distal insertion of the cystic duct noted incidentally. No gross pancreatic lesion. Remainder of the visualized upper abdominal organs are unremarkable on this nonenhanced exam. IMPRESSION: Prominence of the biliary tree appears similar to baseline CT scan dated 10/01/2009. No choledocholithiasis. Imaging limited due to motion degradation.
[2018-02-04 06:28] VITALS: BP 120/58
[2018-02-04 06:34] VITALS: BP 140/98
--- NOTE | 2018-02-04 08:12 | PN- Housestaff ---
Jaime GALE,Laura 02/04/18 0811: Subjective Follow-up For: copd exacerbation CAP Subjective: Seen and examined. Resting comfortably. He reports improvement in respiratory symptoms. Will be evaluated by GI for chronically dilated biliary ducts Review of Systems Constitutional: Denies: see HPI. Objective Last 24 Hrs of Vital Signs/I&O Vital Signs Date Time Temp Pulse Resp B/P B/P Pulse O2 O2 Flow FiO2 Mean Ox Delivery Rate 02/04 1630 93 Nasal 3.5L Cannula 02/04 1600 Nasal 3.5L Cannula 02/04 1545 98.5 82 18 138/88 94 Nasal 4.5L Cannula 02/04 0829 91 Nasal 3.5L Cannula 02/04 0803 140/98 02/04 0800 96 Nasal 3.5L Cannula 02/04 0634 98.4 77 20 140/98 92 Nasal Cannula 02/04 0628 98.6 84 20 120/58 96 Nasal Cannula 02/04 0000 Nasal 3.5L Cannula 02/03 2200 98.6 80 18 142/98 92 Nasal 4.5L Cannula Intake & Output 02/04 1600 02/04 0800 02/04 0000 Intake Total 700 480 490 Output Total Balance 700 480 490 Intake, IV 0 0 10 Intake, Oral 700 480 480 Number 0 0 0 Bowel Movements Physical Exam General Appearance: Alert, Oriented X3 Cardiovascular: Normal S1, Normal S2 Lungs: wheezes Abdomen: Soft Current Medications: Current Medications Sig/Bonilla Start time Last Medication Dose Route Stop Time Status Admin Albuterol Sulfate 3 ML EVERY 4 HRS/AWAKE 02/01 2000 AC 02/04 INH 1633 Albuterol Sulfate 2 PUF Q4-6 PRN PRN 02/01 2000 AC INH Amoxicillin 500 MG TID 02/03 09 AC 02/04 PO 1259 Azithromycin 250 MG DAILY 02/05 09 CAN PO Azithromycin 500 MG ONCE ONE 02/04 1330 CAN PO 02/04 1331 Budesonide/ 2 PUF BID 02/02 2100 AC 02/04 Formoterol Fumarate INH 0804 Enoxaparin Sodium 40 MG DAILY 02/01 09 AC 02/04 SC 0804 Guaifenesin 600 MG Q12 02/02 09 AC 02/04 PO 0803 Guaifenesin 10 ML Q6P PRN 02/02 0830 AC PO Ipratropium [place] 2.5 ML EVERY 4 HRS/AWAKE 02/01 2000 AC 02/04 INH 1633 Lisinopril 20 MG DAILY 02/01 900 AC 02/04 PO 0803 Lorazepam 0 Q1P PRN 02/01 2000 AC IV Methadone HCl 80 MG DAILY 02/01 900 AC 02/04 PO 0804 Polyethylene Glycol 17 GM DAILY 02/04 2006 AC PO Prednisone 20 MG DAILY 02/06 900 AC PO 02/07 09 Prednisone 30 MG DAILY 02/04 900 AC 02/04 PO 02/05 0901 0803 Tiotropium [place] 1 PUF DAILY 02/01 1956 AC 02/04 INH 0804 Last 24 Hrs of Lab/[place] Results Last 24 Hrs of Labs/Mics: Laboratory Tests 02/04/18 1140: Total Bilirubin 0.5, Direct Bilirubin 0.2, AST 79 H, ALT 211 H, Alkaline Phosphatase 100, Total Protein 5.5 L, Albumin 2.8 L Assessment/Plan Assessment: The patient is 57-year-old gentleman with past medical history of COPD on home oxygen hypertension on lisinopril, 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 The patient presented to [facility] on 01/31 with complain of shortness of breath ongoing and increased oxygen requirement for past 2 days. #Strep Pneumo pneumonia Patient's presentation of shortness of breath and increased sputum production along with leukocytosis and imaging findings of Multifocal airspace disease is consistent with community-acquired pneumonia.-Urine strep antigen positive -Blood cultures x2 No growth -Sputum culture ordered again -Amoxicillin to complete a seven-day course -Tylenol if patient spikes fever -Oxygen supplementation to maintain oxygen saturation above 92% #Acute hypoxic respiratory failure secondary to community-acquired pneumonia and COPD exacerbation Patient was saturating 82% on RA on presentation, oxygen saturation was increased up to 90s on 3 L. He has underlying pneumonia and history of COPD which might be contributing to the acute hypoxic respiratory failure -albuterol and ipratropium nebulizer -Consider addition of Symbicort , Spiriva along with rescue inhaler -Oxygen supplementation to maintain oxygen saturation above 92% -Treatment of pneumonia with oral antibiotics -Prednisone taper -Mucinex # Transaminitis Improving right upper quadrant ultrasound showed dilation of intrahepatic ducts. Hepatitis panel is negative see MRCP results -Continue to trend GI note #Anemia Patient H&H is 80/40 along with macrocytosis probably secondary to alcohol abuse B 12 and folate WNL #Alcohol abuse disorder Patient initially said that he has stopped consuming alcohol for past 6 months. However later said that he drinks 3-4 beers and 2-3 shots every night -patient on CIWA protocol -Ativan as per CIWA per protocol -CIWA 0,0,0,0,0 #Opioid abuse disorder -Patient reports being on methadone 80 mg. The dose has been confirmed from the formation and they have been informed that he has been admitted to [facility] #Rule of UTI Patient reported increased pressure and difficulty starting urination. However denied any frequency urgency or dysuria hematuria is clear urine culture does not show any growth so far probably related to prostate. Patient in follow-up with PCP outpatient #Chronic medical conditions hypertension continue lisinopril #NPO for USG/DVT prophylaxis with Lovenox/F Problem List: 1. COPD exacerbation Pain Ratin Pain Location: n/a Pain Goal: Pain 4 or less Pain Plan: prn Tomorrow's Labs & Rationales: none Bogdan Santacruz MD 02/04/18 1006: Attending MD Review Statement Attending Statement Attending MD Statement: examined this patient, discuss w/resident/PA/CINETECHNICIAN, agreed w/resident/PA/CINETECHNICIAN, discussed with family, reviewed EMR data (avail), discussed with nursing, discussed with case mgmt, reviewed images, amended to note Attending Assessment/Plan: Bogdan Chang M.D. have examined this patient, reviewed available EMR data, personally reviewed images, discussed with resident/PA/CINETECHNICIAN, discussed management plan with housestaff and nursing staff, discussed managment plan all of healthcare providers, discussed management plan with patient and/or family, agreed with resident/PA/CINETECHNICIAN. The past history and parts of the chart have been autopopulated. Impression 57 year old man * Acute hypoxemic respiratory failure, exacerbation of COPD * tobacco dependence/welding/steel exposure * Methadone program for opiate pill use * Mediastinal and hilar lymphadenopathy, most prominently within the right hilar region. 2.2cm right hilar LN, left hilar LN 1cm. negative PET scan * Mild diffuse bronchiectasis and bronchial wall thickening * CAP - s.pneumo ag positive - multifocal aispace disease Plan -steroid taper as ordered -TRC/bronchodilators -Finally course Zithromax is appropriate -Smoking cessation counseling/counseled -was to see CT surgery on an outpatient basis regarding mediastinal LAD -given methadone program closed on Saturdays, plan for DC within 24-48 hours -will require outpt cxr -has home oxygen, assess o2 needs prior to dc DVT prophylaxis at all times
--- NOTE | 2018-02-04 15:43 | Cons- Gastroenterology ---
General Information and HPI Consulting Request Date of Consult: 02/04/18 Requested By: Diaen GALE,Rebeca Reason for Consult: Abnormal liver associated enzymes Source of Information: patient, old records Allergies/Medications Allergies: Coded Allergies: diphenhydramine (From BENADRYL) (Intermediate, JITTERY 08/06/17) Antihistamines - Piperazine (UNKNOWN 08/06/17) Home Med List: Albuterol Sulfate (Proair Hfa) 90 MCG HFA.AER.AD 2 PUF INH Q4-6 PRN PRN sob ( Reported) Amoxicillin 500 MG CAPSULE 1 TAB PO TID PNEUMONIA Budesonide/Formoterol Fumarate (Symbicort 80-4.5 Mcg Inhaler) 80 MCG-4.5 MCG/ ACTUATION HFA.AER.AD 2 PUF INH BID COPD Guaifenesin (Guaifenesin ER) 600 MG TAB.ER.12H 1 TAB PO Q12 COUGH, CONGESTION Lisinopril 20 MG TABLET 1 TAB PO DAILY htn (Reported) Methadone HCl 5 MG/5 ML SOLUTION 80 MG PO DAILY MAINTENCE (Reported) Prednisone 10 MG TABLET 0 PO SEE ADMIN CRITERIA COPD Tiotropium [place] (Spiriva Respimat) 1.25 MCG/ACTUATION MIST.INHAL 1 PUFF INH BID sob (Reported) Current Medications: Current Medications Sig/Bonilla Start time Last Medication Dose Route Stop Time Status Admin Albuterol Sulfate 3 ML EVERY 4 HRS/AWAKE 02/01 2000 AC 02/04 INH 1322 Albuterol Sulfate 2 PUF Q4-6 PRN PRN 02/01 2000 AC INH Amoxicillin 500 MG TID 02/03 09 AC 02/04 PO 1259 Azithromycin 250 MG DAILY 02/05 09 CAN PO Azithromycin 500 MG ONCE ONE 02/04 1330 CAN PO 02/04 1331 Budesonide/ 2 PUF BID 02/02 2100 AC 02/04 Formoterol Fumarate INH 0804 Enoxaparin Sodium 40 MG DAILY 02/01 09 AC 02/04 SC 0804 Guaifenesin 600 MG Q12 02/02 0900 AC 02/04 PO 0803 Guaifenesin 10 ML Q6P PRN 02/02 0830 AC PO Ipratropium [place] 2.5 ML EVERY 4 HRS/AWAKE 02/01 2000 AC 02/04 INH 132 Lisinopril 20 MG DAILY 02/01 09 AC 02/04 PO 0803 Lorazepam 0 Q1P PRN 02/01 2000 AC IV Methadone HCl 80 MG DAILY 02/01 900 AC 02/04 PO 0804 Patient Medication 1 ED ONE ONE 02/03 1545 DC 02/03 Teaching ED 02/03 1546 1550 Prednisone 20 MG DAILY 02/06 900 AC PO 02/07 901 Prednisone 30 MG DAILY 02/04 900 AC 02/04 PO 02/05 0901 0803 Tiotropium [place] 1 PUF DAILY 02/01 1956 AC 02/04 INH 0804 Past History Travel History Traveled to [place] past 21 day No Medical History Blood Transfusion Hx: No Neurological: NONE EENT: NONE Cardiovascular: hypertension Respiratory: asthma, COPD Gastrointestinal: STOMACH TUMOR-SURGERY Hepatic: NONE Renal: NONE Musculoskeletal: RT.WRIST FRACTURE Psychiatric: anxiety, depression Endocrine: NONE Blood Disorders: NONE Cancer(s): NONE, STOMACH 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 Home Who Do You Live With? child Services at Home: None Primary Language: [place] Smoking Status: Former Smoker ETOH Use: heavy use Illicit Drug Use: denies illicit drug use Functional Ability ADLs Independent: dressing, eating, toileting, bathing. Ambulation: independent IADLs Independent: shopping, housework, finances, food prep, telephone, transportation , medication admin. Exam & Diagnostic Data Vital Signs and I&O Vital Signs Date Time Temp Pulse Resp B/P B/P Pulse O2 O2 Flow FiO2 Mean Ox Delivery Rate 02/04 0829 91 Nasal 3.5L Cannula 02/04 0803 140/98 02/04 0800 96 Nasal 3.5L Cannula 02/04 0634 98.4 77 20 140/98 92 Nasal Cannula 02/04 0628 98.6 84 20 120/58 96 Nasal Cannula 02/04 0000 Nasal 3.5L Cannula 02/03 2200 98.6 80 18 142/98 92 Nasal 4.5L Cannula 02/03 1814 98.6 60 18 160/90 02/03 1605 94 Nasal 3.5L Cannula 02/03 1600 98.6 60 18 160/90 Intake & Output 02/04 1600 02/04 0400 02/03 1600 02/03 0400 02/02 1600 02/02 0400 Intake Total 1180 490 892 535 7962 130 Output Total Balance 1180 490 332 263 2226 130 Intake, IV 0 10 10 10 Intake, Oral 1180 480 046 805 3070 120 Number 0 0 1 0 Bowel Movements Results Pertinent Lab Results: Laboratory Tests 02/04 02/03 02/02 1140 0800 0655 Chemistry Sodium (137 - 145 mmol/L) 138 Potassium (3.5 - 5.1 mmol/L) 4.8 Chloride (98 - 107 mmol/L) 98 Carbon Dioxide (22 - 30 mmol/L) 34 H Anion Gap (5 - 16) 6 BUN (9 - 20 mg/dL) 17 Creatinine (0.7 - 1.2 mg/dL) 0.5 L Estimated GFR (>60 ml/min) > 60 BUN/Creatinine Ratio (7 - 25 %) 34.0 H Total Bilirubin (0.2 - 1.3 mg/dL) 0.5 0.4 0.2 Direct Bilirubin (< 0.4 mg/dL) 0.2 0.3 0.2 AST (17 - 59 U/L) 79 H 161 H 236 H ALT (21 - 72 U/L) 211 H 216 H 187 H Alkaline Phosphatase (< 127 U/L) 100 104 103 Total Protein (6.3 - 8.2 g/dL) 5.5 L 5.3 L 5.1 L Albumin (3.5 - 5.0 g/dL) 2.8 L 2.7 L 2.5 L Hematology CBC w Diff NO MAN DIFF REQ WBC (4.8 - 10.8 /CUMM) 12.6 H RBC (4.70 - 6.10 /CUMM) 3.84 L Hgb (14.0 - 18.0 G/DL) 12.4 L Hct (42 - 52 %) 37.8 L MCV (80.0 - 94.0 FL) 98.4 H MCH (27.0 - 31.0 PG) 32.4 H MCHC (33.0 - 37.0 G/DL) 32.9 L RDW (11.5 - 14.5 %) 15.1 H Plt Count (130 - 400 /CUMM) 368 MPV (7.4 - 10.4 FL) 8.1 Gran % (42.2 - 75.2 %) 88.2 H Lymphocytes % (20.5 - 51.1 %) 7.7 L Monocytes % (1.7 - 9.3 %) 4.1 Eosinophils % (0 - 5 %) 0 Basophils % (0.0 - 2.0 %) 0 Absolute Granulocytes (1.4 - 6.5 /CUMM) 11.1 H Absolute Lymphocytes (1.2 - 3.4 /CUMM) 1.0 L Absolute Monocytes (0.10 - 0.60 /CUMM) 0.5 Absolute Eosinophils (0.0 - 0.7 /CUMM) 0 Absolute Basophils (0.0 - 0.2 /CUMM) 0 Serology Hepatitis A IgM Ab (NONREACTIVE) NONREACTIVE Hep Bs Antigen (NONREACTIVE) NONREACTIVE Hep B Core IgM Ab Conf (NONREACTIVE) NONREACTIVE Hepatitis C Antibody (NONREACTIVE) NONREACTIVE Imaging/Other Studies: Ultrasound: IMPRESSION: Echogenic bile without cholelithiasis or cholecystitis. Stable prominent extrahepatic common duct. Consider correlation with abdominal MRI with MRCP sequence for further characterization of the biliary system. MRI/MRCP: IMPRESSION: Prominence of the biliary tree appears similar to baseline CT scan dated 10/01/2009. No choledocholithiasis. Imaging limited due to motion degradation. Assessment/Plan Assessment/Recommendations: 1. Abnormal liver associated enzymes. This is likely secondary to pneumonia and/or medications. Viral hepatitis serologies are negative. Ductal dilatation on imaging is stable/chronic, and maybe secondary to prior narcotic use/biliary dyskinesia. Outpatient evaluation such as EUS may be warranted. 2. Constipation with incomplete evacuation. Recommendations * Fiber supplementation with possible addition of osmotic laxative * Following anticipated discharge, will follow up in our office (Dr. Logan) with attention to LFTs Thank you very much for allowing GI participation in this patient's care. Please call or reconsult as needed. Consult Acknowledgment - Thank you for your consult request.
[2018-02-04 15:45] VITALS: BP 138/88
[2018-02-04 21:39] VITALS: BP 122/80
[2018-02-05 06:56] VITALS: BP 154/98
[2018-02-05 08:03] VITALS: BP 130/72
--- NOTE | 2018-02-05 08:41 | PN- Housestaff ---
Jaime GALE,Laura 02/05/18 0841: Subjective Follow-up For: Community-acquired pneumonia COPD exacerbation Subjective: Seen and examined. stble to be discharged home. Requesting a letter for work and letter for methadone program which will be provided Review of Systems Constitutional: Reports: see HPI. Objective Last 24 Hrs of Vital Signs/I&O Vital Signs Date Time Temp Pulse Resp B/P B/P Pulse O2 O2 Flow FiO2 Mean Ox Delivery Rate 02/05 0833 90 Nasal 3.5L Cannula 02/05 0803 130/72 02/05 0800 Nasal 3.5L Cannula 02/05 0656 99.0 75 20 154/98 92 02/05 0000 Nasal 3.5L Cannula 02/04 2139 98.6 83 19 122/80 94 Nasal 3.5L Cannula 02/04 1630 93 Nasal 3.5L Cannula 02/04 1600 Nasal 3.5L Cannula 02/04 1545 98.5 82 18 138/88 94 Nasal 4.5L Cannula Intake & Output 02/05 1600 02/05 0800 02/05 0000 Intake Total 400 Output Total Balance 400 Intake, Oral 400 Patient 140 lb Weight Physical Exam General Appearance: Alert, Oriented X3 Cardiovascular: Normal S1, Normal S2 Lungs: wheexing improved Abdomen: Normal Bowel Sounds Neurological: Normal Speech Current Medications: Current Medications Sig/Bonilla Start time Last Medication Dose Route Stop Time Status Admin Albuterol Sulfate 3 ML EVERY 4 HRS/AWAKE 02/01 2000 AC 02/05 INH 0833 Albuterol Sulfate 2 PUF Q4-6 PRN PRN 02/01 2000 AC INH Amoxicillin 500 MG TID 02/03 900 AC 02/05 PO 0803 Azithromycin 250 MG DAILY 02/05 09 CAN PO Azithromycin 500 MG ONCE ONE 02/04 1330 CAN PO 02/04 1331 Budesonide/ 2 PUF BID 02/02 2100 AC 02/05 Formoterol Fumarate INH 0802 Enoxaparin Sodium 40 MG DAILY 02/01 900 AC 02/05 SC 0802 Guaifenesin 600 MG Q12 02/02 09 AC 02/05 PO 0803 Guaifenesin 10 ML Q6P PRN 02/02 0830 AC PO Ipratropium [place] 2.5 ML EVERY 4 HRS/AWAKE 02/01 2000 AC 02/05 INH 0833 Lisinopril 20 MG DAILY 02/01 900 AC 02/05 PO 0803 Lorazepam 0 Q1P PRN 02/01 2000 AC IV Methadone HCl 80 MG DAILY 02/01 09 AC 02/05 PO 0803 Polyethylene Glycol 17 GM DAILY 02/04 2006 AC 02/05 PO 0802 Prednisone 20 MG DAILY 02/06 09 AC PO 02/07 09 Prednisone 30 MG DAILY 02/04 0900 DC 02/05 PO 02/05 0901 0803 Tiotropium [place] 1 PUF DAILY 02/01 1956 AC 02/05 INH 1005 Assessment/Plan Assessment: The patient is a 57-year-old gentleman with past medical history of COPD on home oxygen hypertension on lisinopril, 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 The patient presented to [facility] ED on 01/31 with complain of shortness of breath ongoing and increased oxygen requirement for past 2 days. The patient is being treated for Strep Pneumo pneumonia. He was initially treated with IV antibiotics in the setting of his urine antigen was positive for strep pneumo and he was shifted to amoxicillin to complete a 7 day course. He was also treated for acute exacerbation of COPD. Patient is at his baseline oxygen at home. He is being discharged on a steroid taper. And that Mucinex has been added for cough. Symbicort has been added for better COPD control. Patient had transaminitis and chronically dilated intrahepatic. Has been evaluated by GI and started on MiraLAX. He is going to follow up with GI as an outpatient. He also has follow-up appointments coming up with Dr. Santacruz. Problem List: 1. Pneumonia Pain Ratin Pain Location: prn Pain Goal: Pain 4 or less Pain Plan: n/a Tomorrow's Labs & Rationales: n/a Bogdan Santacruz MD 02/05/18 0954: Attending MD Review Statement Attending Statement Attending Statement: examined this patient, discuss w/resident/PA/ACTIVITY AID, agreed w/resident/PA/ACTIVITY AID, discussed with family, reviewed EMR data (avail), discussed with nursing, discussed with case mgmt, reviewed images, amended to note Attending Assessment/Plan: Bogdan Chang M.D. have examined this patient, reviewed available EMR data, personally reviewed images, discussed with resident/PA/ACTIVITY AID, discussed management plan with housestaff and nursing staff, discussed managment plan all of healthcare providers, discussed management plan with patient and/or family, agreed with resident/PA/ACTIVITY AID. The past history and parts of the chart have been autopopulated. Impression 57 year old man * Acute hypoxemic respiratory failure, exacerbation of COPD * tobacco dependence/welding/steel exposure * Methadone program for opiate pill use * Mediastinal and hilar lymphadenopathy, most prominently within the right hilar region. 2.2cm right hilar LN, left hilar LN 1cm. negative PET scan * Mild diffuse bronchiectasis and bronchial wall thickening * CAP - s.pneumo ag positive - multifocal aispace disease Plan -steroid taper as ordered -TRC/bronchodilators -amoxicillin for s.pneumo - pneumonia -Smoking cessation counseling/counseled -was to see CT surgery on an outpatient basis regarding mediastinal LAD -given methadone program closed on Saturdays, plan for DC within 24-48 hours -will require outpt cxr -plan for dc today DVT prophylaxis at all times
[2018-02-05] MEDS ORDERED: GUAIFENESIN ER600 MG PO (10:28)
[2018-02-05] MEDS ORDERED: PREDNISONE10 M2 PO (10:28)
[2018-02-05] MEDS ORDERED: AMOXICILLIN500 M2 PO (10:28)
[2018-02-05] MEDS ORDERED: SYMBICORT 80-10.2 GM INH (10:28)
[2018-02-05] MEDS ORDERED: MIRALAX17 G1 PO (10:30)
--- NOTE | 2018-02-06 15:39 | Discharge Summary ---
Hospital Course Allergies: Coded Allergies: diphenhydramine (From BENADRYL) (Intermediate, JITTERY 08/06/17) Antihistamines - Piperazine (UNKNOWN 08/06/17) Discharge Instructions Medications at Discharge Discharge Medications: Continue taking these medications: Methadone HCl (Methadone HCl) 5 MG/5 ML SOLUTION 80 Milligram ORAL DAILY Comments: [facility] Last Taken: 02/05/18 Time: 0800 Lisinopril (Lisinopril) 20 MG TABLET 1 Tablet ORAL DAILY Comments: Last Taken: 02/05/18 Time: 0800 Tiotropium Veteran (Spiriva Respimat) 1.25 MCG/ACTUATION MIST.INHAL 1 PUFF Inhale through mouth TWICE DAILY Comments: Last Taken: 02/05/18 Time: 1000 Albuterol Sulfate (Proair Hfa) 90 MCG HFA.AER.AD 2 Puff Inhale through mouth EVERY 4-6 HOURS NEEDED as needed for sob Comments: Last Taken: 02/05/18 Time: 0800 Start taking the following new medications: Amoxicillin (Amoxicillin) 500 MG CAPSULE 1 Tablet ORAL THREE TIMES DAILY Qty = 5 No Refills Instructions: . Comments: Last Taken: 02/05/18 Time: 0800 Budesonide/Formoterol Fumarate (Symbicort 80-4.5 Mcg Inhaler) 80 MCG-4.5 MCG/ ACTUATION HFA.AER.AD 2 Puff Inhale through mouth TWICE DAILY Qty = 1 No Refills Instructions: . Comments: Last Taken: 02/05/18 Time: 0800 Guaifenesin (Guaifenesin ER) 600 MG TAB.ER.12H 1 Tablet ORAL EVERY 12 HOURS Qty = 10 No Refills Instructions: . Comments: Last Taken: 02/05/18 Time: 0800 Prednisone (Prednisone) 10 MG TABLET 0 ORAL SEE INSTRUCTIONS Qty = 6 No Refills Comments: Last Taken: 02/05/18 Time: 0800 TAKE 20MG 2 PILLS ON 02/06, 02/07 TAKE 10MG 1 PILL ON 02/08, 02/09 Polyethylene Glycol 3350 (Miralax) 17 GRAM POWD.PACK 1 Packet ORAL DAILY Qty = 30 No Refills Instructions: dissolve in water Comments: Last Taken: 02/05/18 Time: 0800
== END 2018-02-05 12:26 | DRG 193 ==
LOC: ERH 12:16 → ERHI 14:54 → 2NB 14:54 → ENRESERV 16:10 → ENTRNSPT 16:42 → 2NB 16:43 → EDTRNSPTSTS 17:05 → EDTRNSPT 17:05 → CMPTRNSPT 17:22 → 2NB 02-01 10:49 → ENPENDDIS 02-05 10:34 → 2NB 02-05 12:26
PROVIDERS: Emergency Medicine; Internal Medicine
DX: J13 Pneumonia due to Streptococcus pneumoniae (principal); J96.01 Acute respiratory failure with hypoxia; J44.1 Chronic obstructive pulmonary disease with (acute) exacerbation; Z99.81 Dependence on supplemental oxygen; Z90.3 Acquired absence of stomach [part of]; Z90.49 Acquired absence of other specified parts of digestive tract; Z87.891 Personal history of nicotine dependence; Z88.8 Allergy status to other drugs, medicaments and biological substances; F41.9 Anxiety disorder, unspecified; F32.9 Major depressive disorder, single episode, unspecified; D64.9 Anemia, unspecified; F11.99 Opioid use, unspecified with unspecified opioid-induced disorder; Z79.51 Long term (current) use of inhaled steroids; R74.0 Nonspecific elevation of levels of transaminase and lactic acid dehydrogenase [LDH]; F10.10 Alcohol abuse, uncomplicated
CPT/HCPCS: 2NBSP; 74181; 36415; 36592; 71045; 81001; 82436; 87040; 87070; 87086; 87449; 87450; 93005; 93010; 96374; 96375; J0456; J0696; J1650; J2920; J2930; J3490; J7040; J7512